=== PATIENT | male | born 1995 | race Caucasian/White ===

== ENCOUNTER 2016-08-14 17:24 | Emergency (ER) | payer BC ==
[~2016-08-14] VITALS: Ht 182.9 cm; Wt 68.0 kg
--- NOTE | 2016-08-14 17:35 | NUR ---
Pt BIB [facility], reports pt had approx 5 minute gran-mal SZ, glucose=87, pt becoming more coherent during transport; IV 20g right arm [employer]. Pt A&O to person place and year, RODRICK, 5mm. Pt c/o -10/20 PLATT, denies dizziness, CP, SOB, n/v, no other complaints, no distress noted, does not want to get worked up. Pt attached to monitor. Bed rails padded for Sz. precautions.
[2016-08-14] MEDS ORDERED: LORA-259 PO (17:48)
[2016-08-14] MEDS ORDERED: FLUO40CA8 PO (17:48)
[2016-08-14] MEDS ORDERED: ACET-73 PO (17:48)
[2016-08-14] MEDS ORDERED: CALMS FORTE PO (17:48)
[2016-08-14] MEDS ORDERED: TRAZ-147 PO (17:48)
[2016-08-14] MEDS ORDERED: CLON0.1T PO (17:48)
[2016-08-14] MEDS ORDERED: LAMO250T PO (17:48)
[2016-08-14] MEDS ORDERED: QUET200T PO (17:48)
[2016-08-14] MEDS ORDERED: DOCU-25 PO (17:48)
[2016-08-14] MEDS ORDERED: IBUP-1955 PO (17:48)
[2016-08-14] MEDS ORDERED: LAMOTRIGINE 200 MG TABLET PO SCH (19:00)
[2016-08-14 19:28] LABS: CREATININE 0.9 mg/dL (0.6-1.3); POTASSIUM 3.9 mmol/L (3.5-5.1)
--- NOTE | 2016-08-14 19:34 | NUR ---
Patient discharged to home in stable conditon. Written and verbal after care instructions given. Patient verbalizes understanding of instructions. Ambulated from ER with stable gait. All belongings with patient. Patient to be driven home by [facility]. Patient is currently in a drug rehabilitation facility.
[2016-08-14 19:35] VITALS: BP 130/75
== END 2016-08-14 19:36 | disposition home or self-care (01) ==
LOC: ER 17:26
DX: G40.909 Epilepsy, unspecified, not intractable, without status epilepticus (principal); F19.10 Other psychoactive substance abuse, uncomplicated; F32.9 Major depressive disorder, single episode, unspecified
CPT/HCPCS: 36415; 80048; 93005; 99285; A4663